=== PATIENT | male | born 1975 | race Two or more races ===

== ENCOUNTER 2021-04-11 02:54 | Emergency (ER) | payer OTHER ==
[~2021-04-11] VITALS: Ht 188 cm; Wt 136.4 kg
[2021-04-11] MEDS ORDERED: PERTUSS(ACELL),DIPH,TET VAC/PF 0.5 ML SYRINGE IM. ONE (05:00)
[2021-04-11 05:13] VITALS: BP 143/97
== END 2021-04-11 06:07 | disposition home or self-care (01) ==
LOC: EMS 02:56
DX: S00.81XA Abrasion of other part of head, initial encounter (principal); S09.90XA Unspecified injury of head, initial encounter; Y35.813A Legal intervention involving manhandling, suspect injured, initial encounter; Y93.89 Activity, other specified; Y92.89 Other specified places as the place of occurrence of the external cause; Y99.8 Other external cause status
CPT/HCPCS: 70450; 90471; 90715; 99284